=== PATIENT | male | born 1995 | race Two or more races ===

== ENCOUNTER 2021-05-24 09:36 | Emergency (ER) | payer OTHER ==
[~2021-05-24] VITALS: Ht 167.6 cm; Wt 68.2 kg
[2021-05-24] MEDS ORDERED: LIDOCAINE 1% 10 ML VIAL PERC ONE (11:30)
[2021-05-24] MEDS ORDERED: PERTUSS(ACELL),DIPH,TET VAC/PF 0.5 ML SYRINGE IM. ONE (11:30)
[2021-05-24 13:12] VITALS: BP 130/72
== END 2021-05-24 13:39 | disposition home or self-care (01) ==
LOC: EMS 09:36
DX: S01.511A Laceration without foreign body of lip, initial encounter (principal); S01.01XA Laceration without foreign body of scalp, initial encounter; S01.21XA Laceration without foreign body of nose, initial encounter; M25.562 Pain in left knee; W01.198A Fall on same level from slipping, tripping and stumbling with subsequent striking against other object, initial encounter; Y93.01 Activity, walking, marching and hiking; Y92.828 Other wilderness area as the place of occurrence of the external cause; Y99.8 Other external cause status
CPT/HCPCS: 12001; 12013; 70450; 70486; 73562; 90471; 90715; 99284; J3490